=== PATIENT | female | born 1950 | race Caucasian/White ===

== ENCOUNTER 2017-01-04 21:26 | Inpatient (IN) | payer MEDICARE, BC, OTHER ==
[~2017-01-04] VITALS: Ht 160 cm; Wt 68.6 kg
[2017-01-04 22:18] LABS: OSMOLALITY SERUM 297 MOSM/KG (280-301)
[2017-01-04 22:32] LABS: ALBUMIN 3.6 GM/DL (3.2-5.2); ALBUMIN/GLOBULIN RATIO 0.97 (1.00-1.93); ALKALINE PHOSPHATASE 77 U/L (45-117); ALT/SGPT 40 U/L (12-78); ANION GAP 18 MEQ/L (8-16); AST/SGOT 29 U/L (15-37); BILIRUBIN,DIRECT 0.3 MG/DL (0.0-0.2); BILIRUBIN,TOTAL 0.9 MG/DL (0.2-1.0); BLOOD UREA NITROGEN 21 MG/DL (7-18); CALCIUM LEVEL 9.5 MG/DL (8.8-10.2); CARBON DIOXIDE LEVEL 28 MEQ/L (21-32); CHLORIDE LEVEL 97 MEQ/L (98-107); GLOMERULAR FILTRATION RATE 52.7 (>45); GLUCOSE, FASTING 140 MG/DL (80-110); POTASSIUM SERUM 2.8 MEQ/L (3.5-5.1); SODIUM LEVEL 143 MEQ/L (136-145); TOTAL PROTEIN 7.3 GM/DL (6.4-8.2)
[2017-01-04 22:53] LABS: BASO % 0.5 % (0.0-1.0); EOS # 0.1 K/mm3 (0.0-0.50); EOS % 0.7 % (0.0-3.0); LARGE UNSTAINED CELL # 0.1 K/mm3 (0.0-0.4); LARGE UNSTAINED CELL % 1.2 % (0.0-4.0); LYMPH % 8.5 % (24.0-44.0); MEAN CORPUSCULAR HEMOGLOBIN 24.1 pg (27.0-33.0); MEAN CORPUSCULAR HGB CONC 31.3 g/dl (32.0-36.5); MEAN CORPUSCULAR VOLUME 76.9 fl (80.0-96.0); MONO # 0.6 K/mm3 (0.0-0.8); MONO % 5.8 % (0.0-5.0); NEUTROPHILS % 83.4 % (36.0-66.0); PLATELET COUNT, AUTOMATED 496 k/mm3 (150-450); RED CELL DISTRIBUTION WIDTH 17.2 % (11.5-14.5); WHITE BLOOD COUNT 10.8 K/mm3 (4.0-10.0)
[2017-01-04 22:59] LABS: VENOUS BASE EXCESS 9.5 (-2.0-2.0); VENOUS O2 SATURATION 99.4 % (60.0-80.0); VENOUS PARTIAL PRESSURE CO2 32.5 mmHg (38.0-50.0); VENOUS STANDARD HCO3 33.4 MEQ/L; VENOUS TOTAL CO2 32.3 MEQ/L (24.0-28.0)
--- NOTE | 2017-01-04 23:00 | REPUSA ---
CT of the head Clinical history: encephalopathy. Technique: Multiple axial CT images were obtained through the head without administration of contrast . Findings: The ventricles and sulci are symmetric bilaterally. There is no evidence of acute hemorrhag e or infarct. There is no midline shift, mass effect, or extra-axial fluid collection. The osseous st ructures are unremarkable. The visualized paranasal sinuses and mastoid air cells are clear. Impression: Negative study.
[2017-01-04 23:09] LABS: MAGNESIUM LEVEL 2.1 MG/DL (1.8-2.4)
[2017-01-04] MEDS ORDERED: POTASSIUM CHLORIDE 10 MEQ SR TABLET PO ONE (23:15)
[2017-01-04] MEDS ORDERED: SODIUM CHLORIDE 0.9% 1000 ML IV ONE (23:15)
[2017-01-04] MEDS ORDERED: KCL 10MEQ IN 100ML SWI (KRUN) 10 MEQ in APPROPRIATE DILUENT 1 EA IV ONE ×2 (23:15)
[2017-01-04] MEDS ORDERED: NS 1,000 ML IV SCH (23:45)
[2017-01-04 23:50] LABS: PHOSPHORUS LEVEL 4.1 MG/DL (2.5-4.9)
[2017-01-05] VITALS (7 sets, daily range): BP systolic 98–148; BP diastolic 52–82
[2017-01-05] MEDS ORDERED: LANS30CA PO (00:13)
[2017-01-05] MEDS ORDERED: POTA20TA PO (00:13)
[2017-01-05] MEDS ORDERED: ONDA4TAB6 PO (00:13)
[2017-01-05] MEDS ORDERED: ONDANSETRON 4MG/2ML VIAL (J2405) IV PRN (02:15)
[2017-01-05] MEDS ORDERED: POTASSIUM CHLORIDE 10 MEQ SR TABLET PO ONE ×2 (02:15→12:00)
[2017-01-05 02:33] LABS: RETIC HEMOGLOBIN CONTENT CHr 27.7 PG (24-36); RETICULOCYTE ABSOLUTE ADVIA212 55 x10(9)/L (17-77)
[2017-01-05 02:35] LABS: REASON FOR REVIEW COMPREHENSIVE REVIEW
[2017-01-05 02:45] LABS: FERRITIN 20 NG/ML (8-252); TOTAL IRON BINDING CAPACITY 389 UG/DL (250-450)
[2017-01-05] MEDS: NS 1,000 ML IV SCH ×2 (03:04→15:29)
[2017-01-05] MEDS ORDERED: amLODIPine 5 MG TAB PO ONE (03:30)
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
[2017-01-05] MEDS ORDERED: SENOKOT S TAB PO PRN (03:45)
[2017-01-05] MEDS: KCL 10MEQ IN 100ML SWI (KRUN) 10 MEQ in APPROPRIATE DILUENT 1 EA IV SCH ×8 (04:54→11:40)
[2017-01-05 05:48] LABS: ABG HCO3 30.9 MEQ/L (22.0-26.0); ABG PARTIAL PRESSURE O2 86.4 mmHg (75.0-100.0); ABG STANDARD HCO3 31.7 MEQ/L (22.0-26.0); ABG TOTAL CO2 32.1 MEQ/L (23.0-31.0)
[2017-01-05 07:34] LABS: CALCIUM LEVEL 9.5 MG/DL (8.8-10.2); MAGNESIUM LEVEL 2.4 MG/DL (1.8-2.4); PHOSPHORUS LEVEL 4.1 MG/DL (2.5-4.9)
[2017-01-05] MEDS: ASCORBIC ACID 250 MG TAB PO SCH (08:09)
[2017-01-05] MEDS: PANTOPRAZOLE 40MG INJ (PROTONIX) (C9113) IV SCH ×2 (08:09→19:50)
[2017-01-05] MEDS: amLODIPine 5 MG TAB PO SCH (08:10)
--- NOTE | 2017-01-05 08:11 | REP ---
Sitting AP chest x-ray: Single view. History: Altered mental status. Findings: There is a large hiatal hernia behind the heart. Heart is not enlarged. Lungs are otherwise well inflated and clear. Pleural angles are sharp. Pulmonary vasculature is not increased. EKG electrodes are seen. No significant bony abnormality. Impression: Large hiatal hernia. Otherwise no acute disease. Signed by Guillermo Shin MD 01/05/2017 08:30 A
--- NOTE | 2017-01-05 08:53 | ECGEPIP ---
Stationary ECG Study [facility] - ED Test Date: 2017-01-04 Pat Name: YANIQUE MANZANARES Department: Room: [place] [address] Gender: F Home Service Consultant: peter : 1950 Requested By: SHARON Doss Order Number: [id number] Reading MD: Jak Cedillo Measurements Intervals [place] Rate: 113 P: 51 NH: 172 QRS: 28 QRSD: 100 T: 59 QT: 338 QTc: 465 Interpretive Statements SINUS TACHYCARDIA PROBABLE LATERAL MYOCARDIAL INFARCTION, PROBABLY OLD INFERIOR MYOCARDIAL INFARCTION, PROBABLY OLD NO PRIORS Electronically Signed On 01-05-2017 8:52:45 EDT by Jak Cedillo
[2017-01-05 08:57] LABS: VITAMIN B12 LEVEL > 2000 PG/ML (247-911)
[2017-01-05 08:58] LABS: MEAN CORPUSCULAR HEMOGLOBIN 24.6 pg (27.0-33.0); MEAN CORPUSCULAR HGB CONC 31.7 g/dl (32.0-36.5); MEAN CORPUSCULAR VOLUME 77.8 fl (80.0-96.0); RED CELL DISTRIBUTION WIDTH 17.2 % (11.5-14.5); WHITE BLOOD COUNT 6.7 K/mm3 (4.0-10.0)
[2017-01-05 09:00] LABS: CORTISOL AM 30.4 UG/DL (4.3-22.4)
[2017-01-05 09:00] LABS: ANION GAP 15 MEQ/L (8-16); BLOOD UREA NITROGEN 23 MG/DL (7-18); CALCIUM LEVEL 9.4 MG/DL (8.8-10.2); CARBON DIOXIDE LEVEL 30 MEQ/L (21-32); CHLORIDE LEVEL 98 MEQ/L (98-107); CREATININE FOR GFR 0.94 MG/DL (0.55-1.02); GLOMERULAR FILTRATION RATE > 60.0 (>45); GLUCOSE, FASTING 83 MG/DL (80-110); POTASSIUM SERUM 3.2 MEQ/L (3.5-5.1); SODIUM LEVEL 143 MEQ/L (136-145)
[2017-01-05] MEDS: FERROUS SULFATE 325MG TAB PO SCH ×3 (09:00→19:50)
[2017-01-05] MEDS ORDERED: FERROUS SULFATE 325MG TAB PO SCH (09:00)
[2017-01-05] MEDS ORDERED: GASTROGRAFIN SOLUTION 30ML (Q9963) As Ordered ONE (09:03)
[2017-01-05] MEDS ORDERED: ISOVUE-370 76% 100ML VIAL (Q9967) As Ordered ONE (11:07)
[2017-01-05 11:21] LABS: METHADONE URINE NEGATIVE (NEGATIVE)
--- NOTE | 2017-01-05 11:50 | REP ---
MRA BRAIN WITHOUT CONTRAST: HISTORY: Altered mental status. 3D [id number] MR angiography was performed at the level of the kiana of [place]. There is no aneurysm, arteriovenous malformation or atherosclerotic lesion. The major intracranial vessels are patent. The vertebral arteries are equal in size. IMPRESSION: Normal MRA brain. Signed by Jeremi Mishra MD 01/05/2017 11:52 A
[2017-01-05] MEDS ORDERED: LevoFLOXacin IV 500 MG in APPROPRIATE DILUENT 1 EA IV ONE (12:00)
--- NOTE | 2017-01-05 12:10 | REP ---
MRI BRAIN WITHOUT CONTRAST: HISTORY: Altered mental status. COMPARISON: CT 01/04/2017. Several punctate areas of increased signal intensity on T2-weighted images are present in the subcortical white matter. This represents small vessel ischemic disease. There is no intraparenchymal hemorrhage, infarct, mass or midline shift. The ventricular system and cortical sulci are dilated consistent with minimal volume loss. There is no extracerebral collection. The sinuses are clear. IMPRESSION: 1. Minimal small vessel ischemic disease. 2. Minimal volume loss. Signed by Jeremi Mishra MD 01/05/2017 12:32 P
--- NOTE | 2017-01-05 14:25 | REP ---
PELVIC ULTRASOUND: Real-time sonographic evaluation of the pelvis performed utilizing transabdominal and endovaginal technique. Transabdominal images are limited due to suboptimal distention of the bladder, which measures 5.2 x 3.1 x 6.1 cm. Endovaginal imaging demonstrates the uterus to measure 6.8 x 3.6 x 5.4 cm. Endometrium is not well defined. There appears to be a left fundal fibroid in the retroverted uterus, measuring 2.9 x 2.4 x 2.3 cm. There is a left-sided fibroid in the uterine body measuring 2.5 x 2.0 x 1.9 cm. The ovaries appear normal in size and echotexture, right ovary measuring 2.4 x 1.2 x 1.6 cm and the left ovary 1.8 x 1.5 x 1.3 cm. There is no adnexal mass. There is no free fluid. There is blood flow seen in each ovary with duplex Doppler evaluation, with no torsion. IMPRESSION: Retroverted uterus. There appear to be two left-sided fibroids. Endometrium is not well defined. I cannot exclude underlying endometrial hyperplasia or neoplasm, or adenomyosis. There is no adnexal mass or free fluid. Signed by Bob Yates MD 01/05/2017 05:22 P
[2017-01-06] MEDS: NS 1,000 ML IV SCH ×2 (00:06→14:52)
[2017-01-06] MEDS ORDERED: FAMOTIDINE 20 MG TAB PO ONE (03:45)
[2017-01-06 04:45] VITALS: BP 116/58
[2017-01-06 05:47] LABS: EOS # 0.2 K/mm3 (0.0-0.50); EOS % 4.9 % (0.0-3.0); LARGE UNSTAINED CELL # 0.1 K/mm3 (0.0-0.4); LARGE UNSTAINED CELL % 1.7 % (0.0-4.0); LYMPH # 0.8 K/mm3 (1.5-4.5); LYMPH % 17.6 % (24.0-44.0); MEAN CORPUSCULAR HEMOGLOBIN 24.7 pg (27.0-33.0); MEAN CORPUSCULAR HGB CONC 31.9 g/dl (32.0-36.5); MEAN CORPUSCULAR VOLUME 77.3 fl (80.0-96.0); MONO # 0.2 K/mm3 (0.0-0.8); MONO % 6.1 % (0.0-5.0); NEUTROPHILS # 2.8 K/mm3 (1.8-7.7); NEUTROPHILS % 68.7 % (36.0-66.0); RED CELL DISTRIBUTION WIDTH 17.1 % (11.5-14.5)
[2017-01-06 06:02] LABS: PLATELET COUNT, AUTOMATED 271 k/mm3 (150-450)
[2017-01-06 06:04] LABS: ANION GAP 11 MEQ/L (8-16); BLOOD UREA NITROGEN 19 MG/DL (7-18); CALCIUM LEVEL 8.2 MG/DL (8.8-10.2); CARBON DIOXIDE LEVEL 24 MEQ/L (21-32); CHLORIDE LEVEL 109 MEQ/L (98-107); CREATININE FOR GFR 0.59 MG/DL (0.55-1.02); GLOMERULAR FILTRATION RATE > 60.0 (>45); GLUCOSE, FASTING 72 MG/DL (80-110); MAGNESIUM LEVEL 2.1 MG/DL (1.8-2.4); PHOSPHORUS LEVEL 2.4 MG/DL (2.5-4.9); POTASSIUM SERUM 3.7 MEQ/L (3.5-5.1); SODIUM LEVEL 144 MEQ/L (136-145)
[2017-01-06 08:00] VITALS: BP 136/65
[2017-01-06 08:35] LABS: ABG BASE EXCESS -4.3 (-2.0-2.0); ABG HCO3 19.1 MEQ/L (22.0-26.0); ABG PARTIAL PRESSURE CO2 29.2 mmHg (35.0-45.0); ABG STANDARD HCO3 20.9 MEQ/L (22.0-26.0); ABG pH (ARTERIAL) 7.434 UNITS (7.350-7.450)
[2017-01-06] MEDS: FERROUS SULFATE 325MG TAB PO SCH ×3 (10:35→21:56)
[2017-01-06] MEDS: PANTOPRAZOLE 40MG INJ (PROTONIX) (C9113) IV SCH ×2 (10:36→21:56)
[2017-01-06] MEDS: amLODIPine 5 MG TAB PO SCH (10:36)
[2017-01-06] MEDS: LevoFLOXacin IV 250 MG in APPROPRIATE DILUENT 1 EA IV SCH (10:36)
[2017-01-06] MEDS: ASCORBIC ACID 250 MG TAB PO SCH (10:36)
[2017-01-06 11:02] LABS: VITAMIN B12 LEVEL 1428 PG/ML (247-911)
[2017-01-06 12:00] VITALS: BP 163/78
[2017-01-06] MEDS ORDERED: ENOXAPARIN 40 MG/0.4 ML SYRINGE (J1650) SC ONE (14:45)
--- NOTE | 2017-01-06 14:46 | IPNPDOC ---
Text Note Date of Service The patient was seen on 01/06/17. NOTE Subjective: The patient states she's feeling much better. She did have nausea is morning. No abdominal pain. Objective: Vitals: (see below) General: No acute distress, laying comfortably in bed. HEENT: Moist mucous membranes. Neck: No JVD or lymphadenopathy Cardiac: RRR, No murmurs Pulm: Crackles at the left lung base. No wheezing or rhonchi. Abd: NT/ND + BS Ext: No edema or cyanosis Neuro: Strength 5/5 BUE and BLE. CN 2-12 intact. F to N intact Negative pronator drift. Negative Babinki. Alert and oriented 3. Labs (see below) Images: Pelvic u/s 01/05/17 IMPRESSION:Retroverted uterus. There appear to be two left- sided fibroids. Endometrium is not well defined. I cannot exclude underlying endometrial hyperplasia or neoplasm, or adenomyosis. There is no adnexal mass or free fluid. MRI Brain 01/05/17 IMPRESSION: 1. Minimal small vessel ischemic disease. 2. Minimal volume loss. MRA Brain 01/05/17 IMPRESSION: Normal MRA brain. Assessment/Plan 1. Metabolic encephalopathy- likely secondary to underlying community-acquired pneumonia, as well as significant metabolic alkalosis. Improving. MRI brain/MRA brain negative for acute findings. EEG pending. ? Psychiatric component. 2. Nausea/vomiting- unclear etiology although the patient does have a large hiatal hernia. Once hemodynamically stable and mental status is improved, we will consult surgery for possible endoscopy. Continue PPI and Zofran as needed. 3. Hypokalemia- replaced 4. Hypertension- controlled continue current meds 5. Microcytic anemia- history of iron deficiency anemia. Will need outpatient colonoscopy. Stable. No need for transfusion at this time. DVT prophy: Lovenox VS,Fishbone, I+O VS, Fishbone, I+O Laboratory Tests 01/06/17 05:26 Red Blood Count 3.82 L, Mean Corpuscular Volume 77.3 L, Mean Corpuscular Hemoglobin 24.7 L, Mean Corpuscular Hemoglobin Concent 31.9 L, Red Cell Distribution Width 17.1 H, Neutrophils (%) (Auto) 68.7 H, Lymphocytes (%) (Auto ) 17.6 L, Monocytes (%) (Auto) 6.1 H, Eosinophils (%) (Auto) 4.9 H, Basophils (% ) (Auto) 1.0, Neutrophils # (Auto) 2.8, Lymphocytes # (Auto) 0.8 L, Monocytes # (Auto) 0.2, Eosinophils # (Auto) 0.2, Basophils # (Auto) 0.0, Calcium Level 8.2 L Vital Signs Date Time Temp Pulse Resp B/P (MAP) Pulse Ox O2 Delivery O2 Flow Rate FiO2 01/06/17 12:32 Room Air 01/06/17 10:36 76 136/65 01/06/17 08:00 97.0 18 97 I&O- Last 24 Hours up to 6 AM 01/06/17 06:00 Intake Total 2460 ml Output Total 750 ml Balance 1710 ml RADHA EPSTEIN MD Jan 06, 2017 14:46
[2017-01-06 16:00] VITALS: BP 128/76
[2017-01-06] MEDS: ACETAMINOPHEN 325 MG TAB PO PRN (16:39)
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
[2017-01-06 20:00] VITALS: BP 134/74
[2017-01-06] MEDS ORDERED: FAMOTIDINE 20 MG TAB PO PRN (21:00)
[2017-01-06 23:59] VITALS: BP 159/86
[2017-01-07 05:48] VITALS: BP 143/87
[2017-01-07 05:51] LABS: BASO % 0.9 % (0.0-1.0); EOS # 0.1 K/mm3 (0.0-0.50); EOS % 2.9 % (0.0-3.0); LARGE UNSTAINED CELL # 0.1 K/mm3 (0.0-0.4); LARGE UNSTAINED CELL % 2.3 % (0.0-4.0); LYMPH # 0.7 K/mm3 (1.5-4.5); LYMPH % 18.3 % (24.0-44.0); MEAN CORPUSCULAR HEMOGLOBIN 25.3 pg (27.0-33.0); MEAN CORPUSCULAR HGB CONC 32.3 g/dl (32.0-36.5); MEAN CORPUSCULAR VOLUME 78.3 fl (80.0-96.0); MONO # 0.3 K/mm3 (0.0-0.8); MONO % 6.4 % (0.0-5.0); NEUTROPHILS # 2.8 K/mm3 (1.8-7.7); NEUTROPHILS % 69.2 % (36.0-66.0); PLATELET COUNT, AUTOMATED 301 k/mm3 (150-450)
[2017-01-07 06:06] LABS: ANION GAP 12 MEQ/L (8-16); BLOOD UREA NITROGEN 13 MG/DL (7-18); CALCIUM LEVEL 8.3 MG/DL (8.8-10.2); CARBON DIOXIDE LEVEL 21 MEQ/L (21-32); CHLORIDE LEVEL 111 MEQ/L (98-107); CREATININE FOR GFR 0.51 MG/DL (0.55-1.02); GLOMERULAR FILTRATION RATE > 60.0 (>45); GLUCOSE, FASTING 61 MG/DL (80-110); PHOSPHORUS LEVEL 2.2 MG/DL (2.5-4.9); POTASSIUM SERUM 3.8 MEQ/L (3.5-5.1); SODIUM LEVEL 144 MEQ/L (136-145)
[2017-01-07 07:25] VITALS: BP 134/85
[2017-01-07] MEDS: NS 1,000 ML IV SCH ×2 (07:30→22:32)
[2017-01-07] MEDS ORDERED: POTASSIUM PHOSPHATE INJ 15 MMOL in D5W 250 ML IV ONE (09:00)
[2017-01-07] MEDS: PANTOPRAZOLE 40MG INJ (PROTONIX) (C9113) IV SCH ×2 (09:19→20:45)
[2017-01-07] MEDS: LevoFLOXacin IV 250 MG in APPROPRIATE DILUENT 1 EA IV SCH (09:20)
[2017-01-07] MEDS: FERROUS SULFATE 325MG TAB PO SCH ×3 (09:20→20:45)
[2017-01-07] MEDS: ASCORBIC ACID 250 MG TAB PO SCH (09:20)
[2017-01-07] MEDS: amLODIPine 5 MG TAB PO SCH (09:21)
[2017-01-07] MEDS: ENOXAPARIN 40 MG/0.4 ML SYRINGE (J1650) SC SCH (09:22)
[2017-01-07 12:00] VITALS: BP 124/94
--- NOTE | 2017-01-07 14:37 | IPNPDOC ---
Text Note Date of Service The patient was seen on 01/07/17. NOTE Subjective: The patient states she's feeling much better. She did have nausea is morning. No abdominal pain. Pt states that her had an endoscopy with Dr. Cade and is agreeable to having it done given her intractable vomiting. Objective: Vitals: (see below) General: No acute distress, laying comfortably in bed. HEENT: Moist mucous membranes. Neck: No JVD or lymphadenopathy Cardiac: RRR, No murmurs Pulm: Crackles at the left lung base. No wheezing or rhonchi. Abd: NT/ND + BS Ext: No edema or cyanosis Neuro: Strength 5/5 BUE and BLE. CN 2-12 intact. F to N intact Negative pronator drift. Negative Babinki. Alert and oriented 3. Labs (see below) Images: Pelvic u/s 01/05/17 IMPRESSION:Retroverted uterus. There appear to be two left- sided fibroids. Endometrium is not well defined. I cannot exclude underlying endometrial hyperplasia or neoplasm, or adenomyosis. There is no adnexal mass or free fluid. MRI Brain 01/05/17 IMPRESSION: 1. Minimal small vessel ischemic disease. 2. Minimal volume loss. MRA Brain 01/05/17 IMPRESSION: Normal MRA brain. EEG 01/05/17 CONCLUSION: This EEG in awake, drowsy states, stage I and II sleep is mildly abnormal due to presence of mild bilateral temporal intermittent slowing, consistent with nonspecific diffuse cerebral dysfunction such as seen in encephalopathy due to multiple potential causes. No epileptiform abnormalities were seen. Clinical correlation is recommended. Assessment/Plan 1. Metabolic encephalopathy- likely secondary to underlying community-acquired pneumonia, as well as significant metabolic alkalosis. Improving. MRI brain/MRA brain negative for acute findings. EEG negative for seizures, see above. ? Psychiatric component. 2. Nausea/vomiting- unclear etiology although the patient does have a large hiatal hernia. Dr. Singh consulted for endoscopy. Continue PPI and Zofran as needed. 3. Hypokalemia- replaced 4. Hypertension- controlled continue current meds 5. Microcytic anemia- history of iron deficiency anemia. Will need outpatient colonoscopy. Stable. No need for transfusion at this time. DVT prophy: Lovenox Above discussed with family. VS,Fishbone, I+O VS, Fishbone, I+O Laboratory Tests 01/07/17 05:28 Red Blood Count 3.85 L, Mean Corpuscular Volume 78.3 L, Mean Corpuscular Hemoglobin 25.3 L, Mean Corpuscular Hemoglobin Concent 32.3, Red Cell Distribution Width 17.0 H, Neutrophils (%) (Auto) 69.2 H, Lymphocytes (%) (Auto ) 18.3 L, Monocytes (%) (Auto) 6.4 H, Eosinophils (%) (Auto) 2.9, Basophils (%) (Auto) 0.9, Neutrophils # (Auto) 2.8, Lymphocytes # (Auto) 0.7 L, Monocytes # ( Auto) 0.3, Eosinophils # (Auto) 0.1, Basophils # (Auto) 0.0, Calcium Level 8.3 L Vital Signs Date Time Temp Pulse Resp B/P (MAP) Pulse Ox O2 Delivery O2 Flow Rate FiO2 01/07/17 12:00 Room Air 01/07/17 12:00 98.1 75 20 124/94 (104) 97 I&O- Last 24 Hours up to 6 AM 01/07/17 06:00 Intake Total 1620 ml Output Total 550 ml Balance 1070 ml RADHA EPSTEIN MD Jan 07, 2017 14:37
[2017-01-07 16:00] VITALS: BP 122/90
--- NOTE | 2017-01-07 16:16 | REP ---
CT study of the chest without contrast: History: Question infiltrate. Comparison chest x-ray 01/04/2017. No comparison chest CT. Findings: There is a large hiatal hernia which appears to be a paraesophageal type as the distal esophagus and gastroesophageal junction extend below the diaphragmatic hiatus. A portion of the mid body of the stomach is seen within the hiatal hernia. The stomach is somewhat distended and filled with fluid and a small quantity of air. Its outlet is compressed by the hiatal hernia. There is no evidence of pulmonary parenchymal infiltrate. There is some compressive atelectasis in the left lower lobe adjacent to the hiatal hernia. No pleural effusion is seen. No pericardial effusion is seen. No hilar or mediastinal mass or adenopathy is observed. No bony destructive lesion is seen. Impression: Large paraesophageal hiatal hernia with moderately dilated stomach. The antrum and duodenal bulb are compressed at the diaphragmatic hiatus. No infiltrate is seen in the lung winkler. Signed by Guillermo Shin MD 01/07/2017 05:01 P
[2017-01-07 20:00] VITALS: BP 158/94
[2017-01-07] MEDS ORDERED: zolPIDEM TARTRATE 5 MG TAB PO SCH (21:00)
[2017-01-07 23:59] VITALS: BP 150/88
[2017-01-08 04:00] VITALS: BP 161/82
[2017-01-08 05:35] LABS: BASO % 0.8 % (0.0-1.0); EOS # 0.2 K/mm3 (0.0-0.50); EOS % 4.2 % (0.0-3.0); LARGE UNSTAINED CELL # 0.1 K/mm3 (0.0-0.4); LARGE UNSTAINED CELL % 2.4 % (0.0-4.0); LYMPH # 0.8 K/mm3 (1.5-4.5); LYMPH % 19.3 % (24.0-44.0); MEAN CORPUSCULAR HEMOGLOBIN 24.9 pg (27.0-33.0); MEAN CORPUSCULAR HGB CONC 32.4 g/dl (32.0-36.5); MEAN CORPUSCULAR VOLUME 76.8 fl (80.0-96.0); MONO # 0.3 K/mm3 (0.0-0.8); MONO % 6.1 % (0.0-5.0); NEUTROPHILS # 2.8 K/mm3 (1.8-7.7); NEUTROPHILS % 67.2 % (36.0-66.0); PLATELET COUNT, AUTOMATED 319 k/mm3 (150-450); RED CELL DISTRIBUTION WIDTH 16.8 % (11.5-14.5); WHITE BLOOD COUNT 4.1 K/mm3 (4.0-10.0)
[2017-01-08 05:49] LABS: ANION GAP 13 MEQ/L (8-16); BLOOD UREA NITROGEN 11 MG/DL (7-18); CALCIUM LEVEL 8.4 MG/DL (8.8-10.2); CARBON DIOXIDE LEVEL 20 MEQ/L (21-32); CHLORIDE LEVEL 109 MEQ/L (98-107); CREATININE FOR GFR 0.45 MG/DL (0.55-1.02); GLOMERULAR FILTRATION RATE > 60.0 (>45); GLUCOSE, FASTING 82 MG/DL (80-110); MAGNESIUM LEVEL 1.9 MG/DL (1.8-2.4); PHOSPHORUS LEVEL 2.4 MG/DL (2.5-4.9); POTASSIUM SERUM 3.7 MEQ/L (3.5-5.1); SODIUM LEVEL 142 MEQ/L (136-145)
[2017-01-08 07:25] VITALS: BP 140/87
[2017-01-08] MEDS: ENOXAPARIN 40 MG/0.4 ML SYRINGE (J1650) SC SCH (09:14)
[2017-01-08] MEDS: amLODIPine 5 MG TAB PO SCH (09:14)
[2017-01-08] MEDS: ASCORBIC ACID 250 MG TAB PO SCH (09:14)
[2017-01-08] MEDS: FERROUS SULFATE 325MG TAB PO SCH ×3 (09:14→20:48)
[2017-01-08] MEDS: PANTOPRAZOLE 40MG INJ (PROTONIX) (C9113) IV SCH ×2 (09:15→20:48)
[2017-01-08] MEDS: LevoFLOXacin IV 250 MG in APPROPRIATE DILUENT 1 EA IV SCH (09:15)
[2017-01-08 12:00] VITALS: BP 138/80
--- NOTE | 2017-01-08 15:02 | IPNPDOC ---
Text Note Date of Service The patient was seen on 01/08/17. NOTE Subjective: The patient states she's feeling much better and tolerating a diet. She did have nausea/vomiting is morning. No abdominal pain. States she does not want surgery or a surgical consultation for her paraesophageal hernia, and only wants medical management so she can go home and take care of her who is blind and is on HD. Objective: Vitals: (see below) General: No acute distress, laying comfortably in bed. HEENT: Moist mucous membranes. Neck: No JVD or lymphadenopathy Cardiac: RRR, No murmurs Pulm: Crackles at the left lung base. No wheezing or rhonchi. Abd: NT/ND + BS Ext: No edema or cyanosis Neuro: Strength 5/5 BUE and BLE. CN 2-12 intact. F to N intact Negative pronator drift. Negative Babinki. Alert and oriented 3. Labs (see below) Images: Pelvic u/s 01/05/17 IMPRESSION:Retroverted uterus. There appear to be two left- sided fibroids. Endometrium is not well defined. I cannot exclude underlying endometrial hyperplasia or neoplasm, or adenomyosis. There is no adnexal mass or free fluid. MRI Brain 01/05/17 IMPRESSION: 1. Minimal small vessel ischemic disease. 2. Minimal volume loss. MRA Brain 01/05/17 IMPRESSION: Normal MRA brain. EEG 01/05/17 CONCLUSION: This EEG in awake, drowsy states, stage I and II sleep is mildly abnormal due to presence of mild bilateral temporal intermittent slowing, consistent with nonspecific diffuse cerebral dysfunction such as seen in encephalopathy due to multiple potential causes. No epileptiform abnormalities were seen. Clinical correlation is recommended. CT CHest 01/07/17 Comparison chest x-ray 01/04/2017. No comparison chest CT. Findings: There is a large hiatal hernia which appears to be a paraesophageal type as the distal esophagus and gastroesophageal junction extend below the diaphragmatic hiatus. A portion of the mid body of the stomach is seen within the hiatal hernia. The stomach is somewhat distended and filled with fluid and a small quantity of air. Its outlet is compressed by the hiatal hernia. There is no evidence of pulmonary parenchymal infiltrate. There is some compressive atelectasis in the left lower lobe adjacent to the hiatal hernia. No pleural effusion is seen. No pericardial effusion is seen. No hilar or mediastinal mass or adenopathy is observed. No bony destructive lesion is seen. Impression: Large paraesophageal hiatal hernia with moderately dilated stomach. The antrum and duodenal bulb are compressed at the diaphragmatic hiatus. No infiltrate is seen in the lung winkler. Assessment/Plan 1. Metabolic encephalopathy- Improved. likely secondary to underlying UTI, as well as significant metabolic alkalosis. Initially thought to possible have CAP , however CT with atelectasis in LLL, not consolidation. Improving. MRI brain/ MRA brain negative for acute findings. EEG negative for seizures, see above. ? Psychiatric component - psych consulted. 2. Nausea/vomiting- 2/2 large paraesophageal hiatal hernia. Discussed with Dr. Singh who recommends surgical intervention. Patient is refusing surgery and surgical consultation. States she only wants to continue PPI for now and f/u outpt so she can go home and take care of her . SHe understands that not addressing this can ultimately result in readmissions. Continue PPI and Zofran as needed. 3. Hypokalemia- replaced 4. Hypertension- controlled continue current meds 5. Microcytic anemia- history of iron deficiency anemia. ? 2/2 paraesophageal hernia. Will need outpatient colonoscopy. Stable. No need for transfusion at this time. DVT prophy: Lovenox Above discussed with family. VS,Fishbone, I+O VS, Fishbone, I+O Laboratory Tests 01/08/17 05:14 Red Blood Count 3.93 L, Mean Corpuscular Volume 76.8 L, Mean Corpuscular Hemoglobin 24.9 L, Mean Corpuscular Hemoglobin Concent 32.4, Red Cell Distribution Width 16.8 H, Neutrophils (%) (Auto) 67.2 H, Lymphocytes (%) (Auto ) 19.3 L, Monocytes (%) (Auto) 6.1 H, Eosinophils (%) (Auto) 4.2 H, Basophils (% ) (Auto) 0.8, Neutrophils # (Auto) 2.8, Lymphocytes # (Auto) 0.8 L, Monocytes # (Auto) 0.3, Eosinophils # (Auto) 0.2, Basophils # (Auto) 0.0, Calcium Level 8.4 L Vital Signs Date Time Temp Pulse Resp B/P (MAP) Pulse Ox O2 Delivery O2 Flow Rate FiO2 01/08/17 12:00 Room Air 01/08/17 12:00 98.2 70 20 138/80 99 96 I&O- Last 24 Hours up to 6 AM 01/08/17 05:59 Intake Total 2655 ml Output Total 950 ml Balance 1705 ml RADHA EPSTEIN MD Jan 08, 2017 15:02
[2017-01-08 16:00] VITALS: BP 140/80
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
[2017-01-08 17:53] VITALS: BP 159/87
[2017-01-08] MEDS: NS 1,000 ML IV SCH (18:30)
[2017-01-08] MEDS: diphenhydrAMINE 50 MG CAP PO SCH (20:48)
[2017-01-08] MEDS: ACETAMINOPHEN 325 MG TAB PO PRN (20:48)
[2017-01-08] MEDS: NYSTATIN CREAM 15 GM TOP SCH (20:49)
[2017-01-08 23:00] VITALS: BP 141/70
[2017-01-09] MEDS: LevoFLOXacin 250 MG TABLET PO SCH (05:51)
[2017-01-09] MEDS: NS 1,000 ML IV SCH ×2 (05:52→14:11)
[2017-01-09 06:00] VITALS: BP 140/87
[2017-01-09 06:12] LABS: EOS # 0.2 K/mm3 (0.0-0.50); EOS % 3.9 % (0.0-3.0); LARGE UNSTAINED CELL # 0.1 K/mm3 (0.0-0.4); LARGE UNSTAINED CELL % 2.1 % (0.0-4.0); LYMPH % 20.5 % (24.0-44.0); MEAN CORPUSCULAR HGB CONC 32.7 g/dl (32.0-36.5); MEAN CORPUSCULAR VOLUME 76.6 fl (80.0-96.0); MONO # 0.3 K/mm3 (0.0-0.8); MONO % 6.8 % (0.0-5.0); NEUTROPHILS # 2.9 K/mm3 (1.8-7.7); NEUTROPHILS % 65.7 % (36.0-66.0); PLATELET COUNT, AUTOMATED 290 k/mm3 (150-450); RED CELL DISTRIBUTION WIDTH 17.3 % (11.5-14.5); WHITE BLOOD COUNT 4.3 K/mm3 (4.0-10.0)
[2017-01-09 06:51] LABS: ANION GAP 13 MEQ/L (8-16); BLOOD UREA NITROGEN 7 MG/DL (7-18); CARBON DIOXIDE LEVEL 20 MEQ/L (21-32); CHLORIDE LEVEL 111 MEQ/L (98-107); CREATININE FOR GFR 0.45 MG/DL (0.55-1.02); GLOMERULAR FILTRATION RATE > 60.0 (>45); GLUCOSE, FASTING 79 MG/DL (80-110); MAGNESIUM LEVEL 1.9 MG/DL (1.8-2.4); PHOSPHORUS LEVEL 2.5 MG/DL (2.5-4.9); POTASSIUM SERUM 3.6 MEQ/L (3.5-5.1); SODIUM LEVEL 144 MEQ/L (136-145)
[2017-01-09] MEDS: amLODIPine 5 MG TAB PO SCH (08:56)
[2017-01-09] MEDS: ASCORBIC ACID 250 MG TAB PO SCH (08:56)
[2017-01-09] MEDS: FERROUS SULFATE 325MG TAB PO SCH ×3 (08:56→20:24)
[2017-01-09] MEDS: ENOXAPARIN 40 MG/0.4 ML SYRINGE (J1650) SC SCH (08:57)
[2017-01-09] MEDS: NYSTATIN CREAM 15 GM TOP SCH ×2 (08:57→20:25)
[2017-01-09] MEDS: PANTOPRAZOLE 40MG INJ (PROTONIX) (C9113) IV SCH ×2 (08:57→20:24)
--- NOTE | 2017-01-09 12:06 | IPNPDOC ---
Text Note Date of Service The patient was seen on 01/09/17. NOTE Subjective: Feels well. Tolerating by mouth. Excited to go home. Refuses surgical consultation and intervention. States she would like to follow-up outpatient. Objective: Vitals: (see below) General: No acute distress, laying comfortably in bed. HEENT: Moist mucous membranes. Neck: No JVD or lymphadenopathy Cardiac: RRR, No murmurs Pulm: Crackles at the left lung base. No wheezing or rhonchi. Abd: NT/ND + BS Ext: No edema or cyanosis Neuro: Strength 5/5 BUE and BLE. CN 2-12 intact. F to N intact Negative pronator drift. Negative Babinki. Alert and oriented 3. Labs (see below) Images: Pelvic u/s 01/05/17 IMPRESSION:Retroverted uterus. There appear to be two left- sided fibroids. Endometrium is not well defined. I cannot exclude underlying endometrial hyperplasia or neoplasm, or adenomyosis. There is no adnexal mass or free fluid. MRI Brain 01/05/17 IMPRESSION: 1. Minimal small vessel ischemic disease. 2. Minimal volume loss. MRA Brain 01/05/17 IMPRESSION: Normal MRA brain. EEG 01/05/17 CONCLUSION: This EEG in awake, drowsy states, stage I and II sleep is mildly abnormal due to presence of mild bilateral temporal intermittent slowing, consistent with nonspecific diffuse cerebral dysfunction such as seen in encephalopathy due to multiple potential causes. No epileptiform abnormalities were seen. Clinical correlation is recommended. CT CHest 01/07/17 Comparison chest x-ray 01/04/2017. No comparison chest CT. Findings: There is a large hiatal hernia which appears to be a paraesophageal type as the distal esophagus and gastroesophageal junction extend below the diaphragmatic hiatus. A portion of the mid body of the stomach is seen within the hiatal hernia. The stomach is somewhat distended and filled with fluid and a small quantity of air. Its outlet is compressed by the hiatal hernia. There is no evidence of pulmonary parenchymal infiltrate. There is some compressive atelectasis in the left lower lobe adjacent to the hiatal hernia. No pleural effusion is seen. No pericardial effusion is seen. No hilar or mediastinal mass or adenopathy is observed. No bony destructive lesion is seen. Impression: Large paraesophageal hiatal hernia with moderately dilated stomach. The antrum and duodenal bulb are compressed at the diaphragmatic hiatus. No infiltrate is seen in the lung winkler. Assessment/Plan 1. Metabolic encephalopathy-resolved. Likely secondary to underlying UTI, as well as significant metabolic alkalosis. Initially thought to possible have CAP , however CT with atelectasis in LLL, not consolidation. Improving. MRI brain/ MRA brain negative for acute findings. EEG negative for seizures, see above. ? Psychiatric component - psych consulted. Questionable underlying dementia. 2. Nausea/vomiting- 2/2 large paraesophageal hiatal hernia. Discussed with Dr. Singh who recommends surgical intervention. Patient is refusing surgery and surgical consultation. States she only wants to continue PPI for now and f/u outpt so she can go home and take care of her . SHe understands that not addressing this can ultimately result in readmissions. Continue PPI and Zofran as needed. 3. Hypokalemia- replaced 4. Hypertension- controlled continue current meds 5. Microcytic anemia- history of iron deficiency anemia. ? 2/2 paraesophageal hernia. Will need outpatient colonoscopy. Stable. No need for transfusion at this time. DVT prophy: Lovenox Above discussed with family. Plan to discharge in the next 24 hours if continues to improve. Only close outpatient follow-up with surgery for possible surgical intervention. VS,Fishbone, I+O VS, Fishbone, I+O Laboratory Tests 01/09/17 05:59 Red Blood Count 3.95 L, Mean Corpuscular Volume 76.6 L, Mean Corpuscular Hemoglobin 25.0 L, Mean Corpuscular Hemoglobin Concent 32.7, Red Cell Distribution Width 17.3 H, Neutrophils (%) (Auto) 65.7, Lymphocytes (%) (Auto) 20.5 L, Monocytes (%) (Auto) 6.8 H, Eosinophils (%) (Auto) 3.9 H, Basophils (%) (Auto) 1.0, Neutrophils # (Auto) 2.9, Lymphocytes # (Auto) 1.0 L, Monocytes # ( Auto) 0.3, Eosinophils # (Auto) 0.2, Basophils # (Auto) 0.0, Calcium Level 8.0 L Vital Signs Date Time Temp Pulse Resp B/P (MAP) Pulse Ox O2 Delivery O2 Flow Rate FiO2 01/09/17 08:56 80 152/92 01/09/17 06:00 99.3 18 98 Room Air I&O- Last 24 Hours up to 6 AM 01/09/17 06:00 Intake Total 2790 ml Output Total 450 ml Balance 2340 ml RADHA EPSTEIN MD Jan 09, 2017 12:06
[2017-01-09 14:00] VITALS: BP 141/89
[2017-01-09] MEDS: ACETAMINOPHEN 325 MG TAB PO PRN (20:25)
[2017-01-09] MEDS: diphenhydrAMINE 50 MG CAP PO SCH (20:25)
[2017-01-09 22:00] VITALS: BP 155/87
[2017-01-10 05:59] LABS: BASO % 0.7 % (0.0-1.0); EOS # 0.1 K/mm3 (0.0-0.50); LARGE UNSTAINED CELL # 0.1 K/mm3 (0.0-0.4); LARGE UNSTAINED CELL % 2.1 % (0.0-4.0); LYMPH # 1.3 K/mm3 (1.5-4.5); LYMPH % 26.2 % (24.0-44.0); MEAN CORPUSCULAR HGB CONC 32.2 g/dl (32.0-36.5); MEAN CORPUSCULAR VOLUME 77.4 fl (80.0-96.0); MONO # 0.3 K/mm3 (0.0-0.8); MONO % 6.2 % (0.0-5.0); NEUTROPHILS # 2.8 K/mm3 (1.8-7.7); NEUTROPHILS % 61.8 % (36.0-66.0); PLATELET COUNT, AUTOMATED 292 k/mm3 (150-450); RED CELL DISTRIBUTION WIDTH 17.4 % (11.5-14.5); WHITE BLOOD COUNT 4.5 K/mm3 (4.0-10.0)
[2017-01-10 06:00] VITALS: BP 154/81
[2017-01-10 06:27] LABS: ANION GAP 9 MEQ/L (8-16); BLOOD UREA NITROGEN 3 MG/DL (7-18); CALCIUM LEVEL 8.5 MG/DL (8.8-10.2); CARBON DIOXIDE LEVEL 24 MEQ/L (21-32); CHLORIDE LEVEL 110 MEQ/L (98-107); CREATININE FOR GFR 0.56 MG/DL (0.55-1.02); GLOMERULAR FILTRATION RATE > 60.0 (>45); GLUCOSE, FASTING 75 MG/DL (80-110); MAGNESIUM LEVEL 1.9 MG/DL (1.8-2.4); PHOSPHORUS LEVEL 2.8 MG/DL (2.5-4.9); POTASSIUM SERUM 3.1 MEQ/L (3.5-5.1); SODIUM LEVEL 143 MEQ/L (136-145)
[2017-01-10] MEDS: LevoFLOXacin 250 MG TABLET PO SCH (07:16)
[2017-01-10] MEDS: NS 1,000 ML IV SCH (07:33)
[2017-01-10] MEDS ORDERED: POTASSIUM CHLORIDE 10 MEQ SR TABLET PO ONE ×2 (08:30→10:30)
[2017-01-10 10:07] VITALS: BP 154/81
[2017-01-10] MEDS: FERROUS SULFATE 325MG TAB PO SCH (10:07)
[2017-01-10] MEDS: PANTOPRAZOLE 40MG INJ (PROTONIX) (C9113) IV SCH (10:07)
[2017-01-10] MEDS: amLODIPine 5 MG TAB PO SCH (10:07)
[2017-01-10] MEDS: ASCORBIC ACID 250 MG TAB PO SCH (10:07)
[2017-01-10] MEDS: ENOXAPARIN 40 MG/0.4 ML SYRINGE (J1650) SC SCH (10:08)
[2017-01-10] MEDS: NYSTATIN CREAM 15 GM TOP SCH (10:13)
[2017-01-10] MEDS: ACETAMINOPHEN 325 MG TAB PO PRN (10:14)
[2017-01-10] MEDS ORDERED: LEVA1TAB PO (10:32)
[2017-01-10] MEDS ORDERED: FERR1TAB8 PO (10:32)
[2017-01-10] MEDS ORDERED: AMLO5TAB2 PO (10:32)
--- NOTE | 2017-01-10 14:53 | DS.PDOC ---
Discharge Summary General Date of Admission Jan 05, 2017 at 00:59 Date of Discharge 01/10/17 Attending Physician: RADHA EPSTEIN MD Specialist/Consultants Involve: LUIS MIGUEL BOWEN MD Discharge Summary PROCEDURES PERFORMED DURING STAY: None. ADMITTING/DISCHARGE DIAGNOSES: 1. Intractable nausea and vomiting 2. Large paraesophageal hernia 3. Metabolic encephalopathy 4. Metabolic alkalosis 5. Hypokalemia 6. Hypertension 7. Microcytic anemia COMPLICATIONS/CHIEF COMPLAINT: Nausea/vomiting HISTORY OF PRESENT ILLNESS/HOSPITAL COURSE: This is a 66-year-old female with a past medical history of hypertension presents complaining of nausea/vomiting. Patient has recently been at [facility] for similar presentation. Had been found to be dehydrated with hypokalemia, was rehydrated and discharged home. Patient has been having this ongoing issue for greater than one week now. Upon further workup, the patient was noted to have metabolic encephalopathy secondary to electrolyte disturbances which have since been resolved. Patient also had psychiatric evaluation as well. Patient was noted to have a large paraesophageal hernia for which it was recommended that the patient have surgery. I did discuss this with Dr. Singh. The patient has refused surgery and has refused a surgical consultation as well. Patient states she will follow-up outpatient. She is currently tolerating diet and will be discharged home. DISCHARGE MEDICATIONS: Please see below. ALLERGIES: Please see below. PHYSICAL EXAMINATION ON DISCHARGE: Vitals: (see below) General: No acute distress, laying comfortably in bed. HEENT: Moist mucous membranes. Neck: No JVD or lymphadenopathy Cardiac: RRR, No murmurs Pulm: Crackles at the left lung base. No wheezing or rhonchi. Abd: NT/ND + BS Ext: No edema or cyanosis Neuro: Strength 5/5 BUE and BLE. CN 2-12 intact. F to N intact Negative pronator drift. Negative Babinki. Alert and oriented 3. LABORATORY DATA: Please see below. IMAGING: Pelvic u/s 01/05/17 IMPRESSION:Retroverted uterus. There appear to be two left- sided fibroids. Endometrium is not well defined. I cannot exclude underlying endometrial hyperplasia or neoplasm, or adenomyosis. There is no adnexal mass or free fluid. MRI Brain 01/05/17 IMPRESSION: 1. Minimal small vessel ischemic disease. 2. Minimal volume loss. MRA Brain 01/05/17 IMPRESSION: Normal MRA brain. EEG 01/05/17 CONCLUSION: This EEG in awake, drowsy states, stage I and II sleep is mildly abnormal due to presence of mild bilateral temporal intermittent slowing, consistent with nonspecific diffuse cerebral dysfunction such as seen in encephalopathy due to multiple potential causes. No epileptiform abnormalities were seen. Clinical correlation is recommended. CT CHest 01/07/17 Comparison chest x-ray 01/04/2017. No comparison chest CT. Findings: There is a large hiatal hernia which appears to be a paraesophageal type as the distal esophagus and gastroesophageal junction extend below the diaphragmatic hiatus. A portion of the mid body of the stomach is seen within the hiatal hernia. The stomach is somewhat distended and filled with fluid and a small quantity of air. Its outlet is compressed by the hiatal hernia. There is no evidence of pulmonary parenchymal infiltrate. There is some compressive atelectasis in the left lower lobe adjacent to the hiatal hernia. No pleural effusion is seen. No pericardial effusion is seen. No hilar or mediastinal mass or adenopathy is observed. No bony destructive lesion is seen. Impression: Large paraesophageal hiatal hernia with moderately dilated stomach. The antrum and duodenal bulb are compressed at the diaphragmatic hiatus. No infiltrate is seen in the lung winkler. PROGNOSIS: ACTIVITY: As tolerated. DIET: As tolerated DISCHARGE PLAN/DISPOSITION: Home DISCHARGE INSTRUCTIONS: 1. F/u with PCP in 1-2 weeks. F/u with surg/GI as needed. Consider surgery for paraesophageal hernia. Return to ED if symptoms worsen. DISCHARGE CONDITION: Stable. TIME SPENT ON DISCHARGE: Greater than 30 minutes. Vital Signs/I&Os Vital Signs Date Time Temp Pulse Resp B/P (MAP) Pulse Ox O2 Delivery O2 Flow Rate FiO2 01/10/17 10:46 Room Air 01/10/17 10:07 70 154/81 01/10/17 06:00 98.0 18 98 I&O- Last 24 Hours up to 6 AM 01/10/17 06:00 Intake Total 2330 ml Output Total 1950 ml Balance 380 ml Laboratory Data Labs 24H Laboratory Tests 2 01/10/17 05:38: White Blood Count 4.5, Red Blood Count 4.16, Hemoglobin 10.4L, Hematocrit 32.2L , Mean Corpuscular Volume 77.4L, Mean Corpuscular Hemoglobin 25.0L, Mean Corpuscular Hemoglobin Concent 32.2, Red Cell Distribution Width 17.4H, Platelet Count 292, Neutrophils (%) (Auto) 61.8, Lymphocytes (%) (Auto) 26.2, Monocytes (%) (Auto) 6.2H, Eosinophils (%) (Auto) 3.0, Basophils (%) (Auto) 0.7 , Neutrophils # (Auto) 2.8, Lymphocytes # (Auto) 1.3L, Monocytes # (Auto) 0.3, Eosinophils # (Auto) 0.1, Basophils # (Auto) 0.0, Large Unclassified Cells % 2.1 , Large Unclassified Cells # 0.1, Anion Gap 9, Glomerular Filtration Rate > 60.0 , Blood Urea Nitrogen 3#L, Creatinine 0.56, Sodium Level 143, Potassium Level 3.1L, Chloride Level 110H, Carbon Dioxide Level 24, Calcium Level 8.5L, Phosphorus Level 2.8, Magnesium Level 1.9 CBC/BMP Laboratory Tests 01/10/17 05:38 Red Blood Count 4.16, Mean Corpuscular Volume 77.4 L, Mean Corpuscular Hemoglobin 25.0 L, Mean Corpuscular Hemoglobin Concent 32.2, Red Cell Distribution Width 17.4 H, Neutrophils (%) (Auto) 61.8, Lymphocytes (%) (Auto) 26.2, Monocytes (%) (Auto) 6.2 H, Eosinophils (%) (Auto) 3.0, Basophils (%) ( Auto) 0.7, Neutrophils # (Auto) 2.8, Lymphocytes # (Auto) 1.3 L, Monocytes # ( Auto) 0.3, Eosinophils # (Auto) 0.1, Basophils # (Auto) 0.0, Calcium Level 8.5 L Microbiology Microbiology 01/05/17 Blood Culture - Final, Complete NO GROWTH AFTER 5 DAYS 01/05/17 Blood Culture - Final, Complete NO GROWTH AFTER 5 DAYS 01/04/17 Blood Culture - Final, Complete NO GROWTH AFTER 5 DAYS 01/09/17 Stool Occult Blood (LUPE) - Final, Complete 01/05/17 Urine Culture - Final, Complete Strep Agalactiae Group B Discharge Medications Scheduled Amlodipine Besylate (Amlodipine Besylate) 5 Mg Tab, 5 MG PO DAILY Ferrous Sulfate (Ferrous Sulfate) 325 Mg Tab, 325 MG PO TID Lansoprazole (Lansoprazole) 30 Mg Cap, 30 MG PO DAILY, (Reported) Levofloxacin Hemihydrate (Levaquin) 250 Mg Tab, 250 MG PO DAILY@06 Potassium Chloride (Klor-Con M20) 20 Meq Tabcr, 20 MEQ PO DAILY, (Reported) Scheduled PRN Ondansetron (Ondansetron Odt) 4 Mg Tab, 4 MG PO Q6H PRN for NAUSEA OR VOMITING, (Reported) Allergies Coded Allergies: No Known Allergies (Unverified , 01/05/17) RADHA EPSTEIN MD Jan 10, 2017 14:53
[2017-01-11 00:06] LABS: ALDOSTERONE 6.2 ng/dL (0.0-30.0)
== END 2017-01-10 14:07 | disposition home or self-care (01) | DRG 391 ==
LOC: M ED 21:26 → M ED INP 01-05 00:59 → M PCU 01-05 14:40 → M MSPAV 01-08 18:02
PROVIDERS: ADMIT Internal Medicine; ATTEND Internal Medicine
DX: R11.2 Nausea with vomiting, unspecified (principal); G93.41 Metabolic encephalopathy; E87.2 Acidosis; E87.3 Alkalosis; K44.9 Diaphragmatic hernia without obstruction or gangrene; E87.6 Hypokalemia; I10 Essential (primary) hypertension; D50.9 Iron deficiency anemia, unspecified; J30.81 Allergic rhinitis due to animal (cat) (dog) hair and dander; J30.2 Other seasonal allergic rhinitis; I16.0 Hypertensive urgency; F32.9 Major depressive disorder, single episode, unspecified; Z79.899 Other long term (current) drug therapy; B95.1 Streptococcus, group B, as the cause of diseases classified elsewhere

== ENCOUNTER → 2017-09-14 | Outpatient (REF) | payer MEDICARE, OTHER ==
[2017-09-14 18:11] LABS: BASO # 0.1 10^3/uL (0.0-0.2); BASO % 0.9 % (0.0-1.0); EOS # 2.4 10^3/uL (0.0-0.50); HEMATOCRIT 30.7 % (36.0-47.0); HEMOGLOBIN 9.5 g/dl (12.0-15.5); IMMATURE GRANULOCYTE % 0.3 % (0-3.0); LYMPH % 9.8 % (24.0-44.0); MEAN CORPUSCULAR HEMOGLOBIN 26.2 pg (27.0-33.0); MEAN CORPUSCULAR HGB CONC 30.9 g/dl (32.0-36.5); MEAN CORPUSCULAR VOLUME 84.6 fl (80.0-96.0); MONO # 0.7 10^3/uL (0.0-0.8); MONO % 6.3 % (0.0-5.0); NEUTROPHILS # 6.2 10^3/uL (1.8-7.7); NEUTROPHILS % 59.3 % (36.0-66.0); PLATELET COUNT, AUTOMATED 277 10^3/uL (150-450); RED BLOOD COUNT 3.63 10^6/uL (4.00-5.40); RED CELL DISTRIBUTION WIDTH 19.1 % (11.5-14.5); WHITE BLOOD COUNT 10.4 10^3/uL (4.0-10.0)
[2017-09-14 18:37] LABS: ALBUMIN 3.6 GM/DL (3.2-5.2); ALBUMIN/GLOBULIN RATIO 1.09 (1.00-1.93); ALKALINE PHOSPHATASE 85 U/L (45-117); ALT/SGPT 25 U/L (12-78); ANION GAP 6 MEQ/L (8-16); AST/SGOT 24 U/L (7-37); BILIRUBIN,TOTAL 0.4 MG/DL (0.2-1.0); BLOOD UREA NITROGEN 19 MG/DL (7-18); CALCIUM LEVEL 8.8 MG/DL (8.8-10.2); CARBON DIOXIDE LEVEL 28 MEQ/L (21-32); CHLORIDE LEVEL 111 MEQ/L (98-107); CREATININE FOR GFR 0.78 MG/DL (0.55-1.30); GLOMERULAR FILTRATION RATE > 60.0 (>45); GLUCOSE, FASTING 80 MG/DL (70-100); POTASSIUM SERUM 3.9 MEQ/L (3.5-5.1); SODIUM LEVEL 145 MEQ/L (136-145); TOTAL PROTEIN 6.9 GM/DL (6.4-8.2)
[2017-09-14 18:43] LABS: EOS % 23.4 % (0.0-3.0); POSITIVE DIFF POS FLAG
[2017-09-20 08:11] LABS: E005-IgE Dog Dander 2.02 kU/L (Class III); G002-IgE Bermuda Grass < 0.10 kU/L (Class 0); G008-IgE Kentucky Bluegrass < 0.10 kU/L (Class 0); M001-IgE Penicillium chrysogen < 0.10 kU/L (Class 0); M002 IgE Cladosporium herbaru < 0.10 kU/L (Class 0); M003 IgE Aspergillus fumigatu < 0.10 kU/L (Class 0); M006-IgE Alternaria alternata < 0.10 kU/L (Class 0); T001-IgE Maple/Box Elder < 0.10 kU/L (Class 0); T003-IgE Common Silver Birch < 0.10 kU/L (Class 0); T006-IgE Cedar, Mountain < 0.10 kU/L (Class 0); T007-IgE Oak, White < 0.10 kU/L (Class 0); T008-IgE Elm, American < 0.10 kU/L (Class 0); T015-IgE Ash, White < 0.10 kU/L (Class 0); T041-IgE Hickory, White < 0.10 kU/L (Class 0); T070-IgE White Mulberry < 0.10 kU/L (Class 0); W001-IgE Ragweed, Short < 0.10 kU/L (Class 0); W009-IgE Plantain, English < 0.10 kU/L (Class 0); W014-IgE Pigweed, Rough < 0.10 kU/L (Class 0); W018-IgE Sheep Sorrel < 0.10 kU/L (Class 0)
== END ==
LOC: M SFHCPLAZ 16:15
DX: J30.1 Allergic rhinitis due to pollen (principal)
CPT/HCPCS: 80053

== ENCOUNTER → 2017-11-22 | Outpatient (CLI) | payer MEDICARE, BC, OTHER | LOC: M SLEEP HO 13:19 | DX: G93.41 Metabolic encephalopathy (principal) | CPT/HCPCS: G0399 ==

== ENCOUNTER → 2019-01-06 | Outpatient (REF) ==
[~2019-01-06] MED LIST: AMLO5TAB6 PO; FERR1TAB8 PO; KLOR20TA42 PO; LANS30CA PO; LEVA250T13 PO; ONDA4TAB6 PO
== END ==
LOC: M LAB 15:43
DX: Z00.00 Encounter for general adult medical examination without abnormal findings (principal)